=== PATIENT | female | born 2000 | race African-American/Black ===

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

== ENCOUNTER 2018-02-16 19:20 | Emergency (ER) | payer OTHER ==
[~2018-02-16] VITALS: Ht 157.5 cm; Wt 68.0 kg
[~2018-02-16 19:20] MED LIST changes: +ALBU0.08 NEB
[2018-02-16 20:38] VITALS: BP 139/70; PULSE 92; RESP 18; TEMP 97.8; O2SAT 99
[2018-02-16 22:14] VITALS: RESP 16; O2SAT 99
--- NOTE | 2018-02-16 22:53 | PD ---
HPI Chief Complaint: Skin Problem Time Seen by Provider: 22:51 Travel History International Travel<30 days: No Contact w/Intl Traveler<30days: No Traveled to known affect area: No History of Present Illness HPI Patient is a 17-year-old female here for evaluation of recurrent itchy skin rash. She has had recurrences every few days. She takes Benadryl and the resolve. Then they come back few days later. This has been going on for months. She has had occasional lip swelling. There has been no tongue swelling , trouble breathing, trouble swallowing, shortness of breath, wheezing, vomiting , diarrhea. She is not sure what may be causing her symptoms. She has not been exposed to any new foods, cosmetics, detergents or medications. She is on control pills. She has switched to hypoallergenic products without improvement. She has not been sick recently. There has been no fever, cough, congestion, vomiting, diarrhea, eye redness or drainage, change in appetite, urinary problems. History Past Medical History Hearing: No Respiratory: Yes (bronchitis) Vision or Eye Problem: No ?: Unknown LMP: 01/23/18 Past Surgical History Surgical History: No Previous Surgery Social History Tobacco Use in Home: No Alcohol Use: Yes (RARE) Tobacco Use: No Substance Use: No Allergies-Medications (Allergen,Severity, Reaction): Coded Allergies: No Known Allergies (Unverified , 07/22/17) Reported Meds & Prescriptions Reported Meds & Active Scripts Active Epipen 2-Bib Inj (Epinephrine) 0.3 Mg/0.3 Ml Pfpen 0.3 Mg IM ONCE PRN Cetirizine (Cetirizine HCl) 10 Mg Tab 10 Mg PO DAILY Albuterol Neb (Albuterol Sulfate) 2.5 Mg/3 Ml Neb 2.5 Mg NEB Q4HR NEB PRN Keflex (Cephalexin) 500 Mg Cap 500 Mg PO Q12H 5 Days Acetaminophen Extra Strength (Acetaminophen) 500 Mg Tab 500 Mg PO Q6H PRN ROS Except as stated in HPI: all other systems reviewed are Neg Physical Exam Narrative GENERAL APPEARANCE: The patient is a well-developed, well-nourished child in no acute distress. She is pink, alert and speaking clearly. SKIN: Skin is warm and dry. There is good turgor. No tenting. Several isolated raised, round to oval, erythematous, blanching lesions 0.5 to 20 mm in size are scattered on the trunk and extremities. No central clearing. HEENT: Throat is clear without erythema, swelling or exudate. Uvula is midline without swelling. Mucous membranes are moist without swelling. Airway is patent. The pupils are equal, round and reactive to light. Extraocular motions are intact. No drainage or injection. Both tympanic membranes are without erythema, dullness or loss of landmarks. No perforation. No nasal congestion. NECK: Supple and nontender with full range of motion without discomfort. No meningeal signs. LUNGS: Good air entry bilaterally with equal breath sounds without wheezes, rales or rhonchi. CHEST: The chest wall is without retractions or use of accessory muscles. HEART: Regular rate and rhythm without murmur. ABDOMEN: Soft, nondistended, nontender with positive active bowel sounds. EXTREMITIES: Full range of motion of all extremities is present. No cyanosis or edema. Capillary refill is less than 2 seconds. NEUROLOGIC: The patient is alert, aware and appropriately interactive with parent and with examiner. Cranial nerves 2 to 12 are grossly intact. Good tone. Data Data Last Documented VS Vital Signs Date Time Temp Pulse Resp B/P (MAP) Pulse Ox O2 Delivery O2 Flow Rate FiO2 02/16/18 22:14 16 99 02/16/18 20:38 97.8 92 139/70 (93) Orders Orders Diphenhydramine (Benadryl) (02/16/18 23:45) Ed Discharge Order (02/16/18 23:32) [facility] Medical Decision Making Medical Screen Exam Complete: Yes Emergency Medical Condition: Yes Medical Record Reviewed: Yes (Last ED visit in our system was July 2017 for respiratory symptoms.) Differential Diagnosis Urticaria - viral, allergic, idiopathic, mycoplasma induced; allergic reaction, viral exanthem, erythema multiforme Narrative Course 17-year-old female with recurrent skin rash consistent with urticaria of unclear etiology. She is well appearing and well hydrated. Her lungs are clear. She has no angioedema but reports lip swelling intermittently. I advised her to follow-up with an clinical microbiologist. Her mother was on the phone. I provided them with information for [facility] for primary care and referral to clinical microbiologist. I discussed diagnosis, expected course and treatment plan with patient who feels comfortable. I discussed signs of worsening and reasons to return to ER. I did advise hypoallergenic soap, moisturizer and detergents. Diagnosis Primary Impression: Urticaria Referrals: [facility] Patient Instructions: General Instructions, Urticaria (ED) Departure Forms: School Release, Return to School Date: Feb 17, 2018 Tests/Procedures Additional Instructions: Zyrtec 10 mg daily. May increase to 10 mg twice per day if not better after 1 week. Benadryl 25 to 50 mg every 6 hours as needed for itching. EpiPen as needed for life threatening allergic reaction. Return to ER if worsening. Follow up with [facility]. Follow up with clinical microbiologist. Med/Other Pt SpecificInfo: Prescription(s) given Scripts Epinephrine Inj (Epipen 2-Bib Inj) 0.3 Mg/0.3 Ml Pfpen 0.3 MG IM ONCE Y for ALLERGIC REACTION, #1 PACK 0 Refills Prov: Mckayla Guevara MD 02/16/18 Cetirizine (Cetirizine) 10 Mg Tab 10 MG PO DAILY for Allergies, #30 TAB 0 Refills Prov: Mckayla Guevara MD 02/16/18 Disposition: 01 DISCHARGE HOME Condition: Stable Primary Care Physician Mckayla Guevara MD Feb 16, 2018 22:53
[2018-02-16] MEDS ORDERED: EPIP0.3I IM (23:32)
[2018-02-16] MEDS ORDERED: CETI10 PO (23:32)
[2018-02-16] MEDS ORDERED: diphenhydrAMINE HCL 50 MG CAP PO ONE (23:45)
== END 2018-02-16 23:45 | disposition home or self-care (01) ==
LOC: NEPA 19:20
DX: L50.9 Urticaria, unspecified (principal)
CPT/HCPCS: 99283; Q0163